=== PATIENT | male | born 2005 | race Caucasian/White ===

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

== ENCOUNTER 2024-12-06 08:42 | Emergency (ER) | payer OTHER ==
[~2024-12-06] VITALS: Ht 167.6 cm; Wt 50.0 kg
[~2024-12-06 08:42] MED LIST changes: +DUPIXENT300 MG/2 M SQ
[2024-12-06 09:27] VITALS: BP 133/59
== END 2024-12-06 09:27 | disposition home or self-care (01) ==
LOC: ED 08:42
DX: S93.501A Unspecified sprain of right great toe, initial encounter (principal); Z91.010 Allergy to peanuts; Z79.2 Long term (current) use of antibiotics; Z79.899 Other long term (current) drug therapy; V00.131A Fall from skateboard, initial encounter; Y93.51 Activity, roller skating (inline) and skateboarding
CPT/HCPCS: 73630; 99283